=== PATIENT | male | born 1970 | race Caucasian/White ===

== ENCOUNTER 2021-09-26 15:50 | Emergency (ER) | payer OTHER ==
[2021-09-26 16:13] VITALS: RESP 18; BMI 22.8
[2021-09-26] MEDS ORDERED: SODIUM CHLORIDE 0.9% 500 ML INFUS.BAG IV ONE (17:09)
[2021-09-26] MEDS ORDERED: FAMOTIDINE 20 MG/50 ML IVPB 20 MG/50 ML MG IVPB ONE ×2 (17:10→17:21)
[2021-09-26] MEDS ORDERED: ONDANSETRON 4 MG/2 ML VIAL IVPUSH ONE ×2 (17:10→20:37)
[2021-09-26] MEDS ORDERED: morphine CARPU-JECT 4 MG/1 ML DISP.SYRIN IVPUSH ONE (17:14)
[2021-09-26] MEDS ORDERED: morphine SULFATE 4 MG/ML VIAL ONE (17:21)
[2021-09-26] MEDS ORDERED: ONDANSETRON 4 MG/2 ML VIAL ONE ×2 (17:21→21:05)
[2021-09-26] MEDS ORDERED: HYDROmorphone HCL CARPU-JECT 1 MG/1 ML DISP.SYRIN IVPUSH ONE ×2 (17:55→20:37)
[2021-09-26 18:04] LABS: HEMATOCRIT 37.5 % (35.4-49); HEMOGLOBIN 12.8 G/dL (11.7-16.9); MCH 27.6 pg (25.7-33.7); MCHC 34.2 g/dl (32.0-35.9); MEAN CELL VOLUME 80.8 fl (80-96); PLATELET COUNT 328.5 10^3/uL (134-434); RBC 4.64 10^6/uL (4.00-5.60); RDW 17.2 % (11.9-15.9); WHITE BLOOD COUNT 7.8 10^3/uL (4.0-10.8)
[2021-09-26] MEDS ORDERED: HYDROmorphone HCL/PF 1 MG/ML VIAL ONE ×2 (18:18→21:05)
[2021-09-26 18:19] LABS: ALBUMIN 3.9 g/dl (3.4-5.0); BILIRUBIN,TOTAL 1.4 mg/dl (0.2-1); TOT PROT 6.4 g/dl (6.4-8.2)
[2021-09-26 18:41] LABS: ANISOCYTOSIS 1+; OVALOCYTE 2+; TEAR DROP CELLS 1+
[2021-09-26 18:42] LABS: PLATELET ESTIMATE ADEQUATE
[2021-09-26 18:45] VITALS: BP 166/111; PULSE 86; TEMP 98.1
[2021-09-26] MEDS ORDERED: AMOX TR/POT CLAV 875MG/125MG TABLETS (FP) PO ONE (22:00)
[2021-09-26] MEDS ORDERED: AMOX TR/POT CLAV 875MG/125MG TABLETS (FP) ONE (22:08)
== END 2021-09-26 22:14 | disposition home or self-care (01) ==
LOC: FER 15:50
DX: K52.9 Noninfective gastroenteritis and colitis, unspecified (principal)
CPT/HCPCS: 36415; 74177-TC; 80053; 81003; 83690; 85025; 87086; 99285-25; Q9967

== ENCOUNTER 2021-09-27 08:33 | Inpatient (IN) | payer OTHER ==
[2021-09-27] MEDS ORDERED: SODIUM CHLORIDE 1,000 ML IV STA ×2 (09:42→17:38)
[2021-09-27] MEDS ORDERED: ACETAMINOPHEN 1000 MG/100 ML BAG IVPB ONE ×2 (09:45→17:38)
[2021-09-27] MEDS ORDERED: ACETAMINOPHEN INJECTION 100 ML IVPB ONE ×2 (10:38→17:59)
[2021-09-27] MEDS ORDERED: HYDROmorphone HCL CARPU-JECT 2 MG/1 ML DISP.SYRIN IVPB ONE (11:16)
[2021-09-27] MEDS ORDERED: PIPERACILLIN/TAZOB 4.5 GM 4.5 GM in DEXTROSE 5%-WATER 100 ML IVPB ONE (11:26)
[2021-09-27 11:54] LABS: BLOOD UREA NITROGEN 12.2 mg/dL (7-18); CALCIUM 9.3 mg/dL (8.5-10.1)
[2021-09-27 11:55] LABS: ALBUMIN 3.7 g/dl (3.4-5.0)
[2021-09-27 11:57] LABS: CREATININE 0.9 mg/dL (0.55-1.3)
[2021-09-27 11:59] LABS: BILIRUBIN,TOTAL 1.2 mg/dL (0.2-1); TOT PROT 6.3 g/dl (6.4-8.2)
[2021-09-27] MEDS ORDERED: HYDROmorphone HCl 2 MG/ML VIAL ONE ×2 (12:49→21:01)
[2021-09-27 12:51] LABS: BASO % 1.2 % (0-2.0); EOS % 2.7 % (0-4.5); HEMATOCRIT 35.4 % (35.4-49); HEMOGLOBIN 11.7 GM/dL (11.7-16.9); LYMPH % 23.1 % (8-40); MCH 26.5 pg (25.7-33.7); MCHC 33.2 g/dl (32.0-35.9); MEAN PLT VOLUME 9.2 fl (7.5-11.1); MONO % 10.1 % (3.8-10.2); NEUT % 62.9 % (42.8-82.8); PLATELET COUNT 291 10^3/uL (134-434); RBC 4.43 M/mm3 (4.00-5.60); RDW 16.2 % (11.9-15.9); WHITE BLOOD COUNT 5.6 K/mm3 (4.0-10.0)
[2021-09-27 13:01] LABS: INR 1.03 (0.83-1.09); PROTHROMBIN TIME (PATIENT) 11.8 SEC (9.7-13.0)
[2021-09-27 13:04] LABS: ACTIVATED PTT 28.4 SECONDS (25.2-36.5)
[2021-09-27] MEDS ORDERED: PIPERACILLIN/TAZOB 4.5 GM 4.5 GM/100 ML BAG IVPB ONE (13:23)
[2021-09-27] MEDS ORDERED: ONDANSETRON 4 MG/2 ML VIAL IVPUSH PRN (18:58)
[2021-09-27] MEDS ORDERED: morphine SULFATE 4 MG/ML VIAL IVPUSH PRN (18:59)
[2021-09-27] MEDS ORDERED: ACETAMINOPHEN 1000 MG/100 ML BAG IVPB PRN (18:59)
[2021-09-27] MEDS ORDERED: ONDANSETRON 4 MG/2 ML VIAL ONE (19:43)
[2021-09-27] MEDS: DICYCLOMINE HCL 10 MG CAPSULE PO SCH (19:54)
[2021-09-27] MEDS ORDERED: ACETAMINOPHEN 325 MG TABLET (FP) PO PRN (20:19)
[2021-09-27] MEDS ORDERED: HYDROmorphone HCl 2 MG/ML VIAL IVPUSH PRN (20:39)
[2021-09-27] MEDS ORDERED: clonazePAM 2 MG TABLET ONE (21:49)
[2021-09-27] MEDS ORDERED: GABAPENTIN 300 MG CAPSULE ONE (21:49)
[2021-09-27] MEDS ORDERED: CEFTRIAXONE 1 GM/50 ML BAG ONE (21:50)
[2021-09-27] MEDS ORDERED: clonazePAM 2 MG TABLET PO SCH (22:00)
[2021-09-27] MEDS: CEFTRIAXONE 1 GM in DEXTROSE 5%-WATER - 50 ML IVPB SCH (22:01)
[2021-09-27] MEDS: GABAPENTIN 300 MG CAPSULE PO SCH (22:01)
[2021-09-27] MEDS: LACTATED RINGERS SOLUTION 1,000 ML IV SCH (22:40)
[2021-09-27] MEDS: PATIENT'S OWN MEDICATION (NON-FORMULARY) (Dextroamphetamine/Amphetamine [Adderall 10 Mg Ta PO SCH (22:40)
[2021-09-28] MEDS: DICYCLOMINE HCL 10 MG CAPSULE PO SCH ×4 (00:40→17:25)
[2021-09-28] MEDS: LACTATED RINGERS SOLUTION 1,000 ML IV SCH ×2 (01:00→19:07)
[2021-09-28] MEDS: PATIENT'S OWN MEDICATION (NON-FORMULARY) (Dextroamphetamine/Amphetamine [Adderall 10 Mg Ta PO SCH (06:03)
[2021-09-28] MEDS: clonazePAM 0.5 MG TABLET PO SCH ×3 (06:04→21:33)
[2021-09-28] MEDS: GABAPENTIN 300 MG CAPSULE PO SCH ×3 (06:04→21:33)
[2021-09-28] MEDS: HYDROmorphone HCl 2 MG/ML VIAL IVPB PRN ×2 (08:46→12:50)
[2021-09-28 09:08] LABS: PH,URINE 6.5 (5.0-8.0); URINE APPEARANCE CLEAR; URINE BILIRUBIN NEGATIVE (NEGATIVE); URINE COLOR YELLOW; URINE GLUCOSE (UA) NEGATIVE (NEGATIVE); URINE KETONE 2+ (NEGATIVE); URINE LEUK ESTERASE NEGATIVE (NEGATIVE); URINE NITRITE NEGATIVE (NEGATIVE); URINE PROTEIN TRACE (NEGATIVE)
[2021-09-28] MEDS: CEFTRIAXONE 1 GM in DEXTROSE 5%-WATER - 50 ML IVPB SCH (09:08)
[2021-09-28 09:11] LABS: BASO % 0.8 % (0-2.0); EOS % 3.6 % (0-4.5); HEMATOCRIT 34.3 % (35.4-49); HEMOGLOBIN 11.6 GM/dL (11.7-16.9); LYMPH % 26.5 % (8-40); MCH 26.5 pg (25.7-33.7); MCHC 33.7 g/dl (32.0-35.9); MEAN CELL VOLUME 78.6 fl (80-96); MEAN PLT VOLUME 8.6 fl (7.5-11.1); MONO % 10.5 % (3.8-10.2); NEUT % 58.6 % (42.8-82.8); PLATELET COUNT 276 10^3/uL (134-434); RBC 4.36 M/mm3 (4.00-5.60); WHITE BLOOD COUNT 5.2 K/mm3 (4.0-10.0)
[2021-09-28] MEDS: amLODIPine BESYLATE 5 MG TABLET (FP) PO SCH (09:11)
[2021-09-28] MEDS: ENOXAPARIN NA (PORCINE) 40 MG/0.4 ML DISP.SYRIN SQ SCH (09:14)
[2021-09-28] MEDS: TRIAMTERENE AND HCTZ - 37.5 MG/25 MG CAPSULE PO SCH (09:15)
[2021-09-28 09:30] LABS: CALCIUM 8.7 mg/dL (8.5-10.1); MAGNESIUM 1.8 mg/dL (1.8-2.4)
[2021-09-28 09:31] LABS: ALBUMIN 3.1 g/dl (3.4-5.0); BLOOD UREA NITROGEN 11.9 mg/dL (7-18)
[2021-09-28 09:33] LABS: BILIRUBIN,DIRECT 0.3 mg/dL (0.0-0.2); CREATININE 0.8 mg/dL (0.55-1.3)
[2021-09-28 09:34] LABS: PHOSPHOROUS 2.6 mg/dL (2.5-4.9); TOT PROT 5.4 g/dl (6.4-8.2)
[2021-09-28 09:35] LABS: BILIRUBIN,TOTAL 1.1 mg/dL (0.2-1)
[2021-09-28] MEDS ORDERED: PATIENT'S OWN MEDICATION (NON-FORMULARY) (Cariprazine Hcl [Vraylar] 1.5 MG Capsule) PO SCH (10:00)
[2021-09-29] MEDS: DICYCLOMINE HCL 10 MG CAPSULE PO SCH ×4 (00:13→17:08)
[2021-09-29] MEDS: HYDROmorphone HCl 2 MG/ML VIAL IVPB PRN ×3 (00:31→09:24)
[2021-09-29] MEDS: GABAPENTIN 300 MG CAPSULE PO SCH ×3 (06:18→22:45)
[2021-09-29] MEDS: clonazePAM 0.5 MG TABLET PO SCH ×3 (06:18→22:45)
[2021-09-29] MEDS: ENOXAPARIN NA (PORCINE) 40 MG/0.4 ML DISP.SYRIN SQ SCH (09:17)
[2021-09-29] MEDS: CEFTRIAXONE 1 GM in DEXTROSE 5%-WATER - 50 ML IVPB SCH (09:23)
[2021-09-29] MEDS: amLODIPine BESYLATE 5 MG TABLET (FP) PO SCH (09:23)
[2021-09-29] MEDS: TRIAMTERENE AND HCTZ - 37.5 MG/25 MG CAPSULE PO SCH ×2 (09:29→09:37)
[2021-09-29 09:39] LABS: BASO % 0.9 % (0-2.0); EOS % 3.7 % (0-4.5); HEMATOCRIT 35.8 % (35.4-49); LYMPH % 31.3 % (8-40); MCH 26.8 pg (25.7-33.7); MCHC 33.5 g/dl (32.0-35.9); MEAN PLT VOLUME 8.7 fl (7.5-11.1); MONO % 11.1 % (3.8-10.2); PLATELET COUNT 288 10^3/uL (134-434); RBC 4.47 M/mm3 (4.00-5.60); RDW 15.9 % (11.9-15.9); WHITE BLOOD COUNT 4.9 K/mm3 (4.0-10.0)
[2021-09-29 10:04] LABS: CALCIUM 8.8 mg/dL (8.5-10.1)
[2021-09-29 10:05] LABS: ALBUMIN 3.1 g/dl (3.4-5.0); BLOOD UREA NITROGEN 12.9 mg/dL (7-18); MAGNESIUM 1.7 mg/dL (1.8-2.4)
[2021-09-29 10:08] LABS: CREATININE 0.8 mg/dL (0.55-1.3)
[2021-09-29 10:09] LABS: TOT PROT 5.3 g/dl (6.4-8.2)
[2021-09-29] MEDS ORDERED: MAGNESIUM 2GM/50ML STERILE WATER IVPB IVPB ONE (12:39)
[2021-09-29] MEDS ORDERED: HYDROmorphone HCl 2 MG/ML VIAL IVPB PRN (12:41)
[2021-09-29 15:22] VITALS: BMI 22.0
[2021-09-29] MEDS: PATIENT'S OWN MEDICATION (NON-FORMULARY) (Dextroamphetamine/Amphetamine [Adderall 10 Mg Ta PO SCH ×2 (18:32→22:46)
[2021-09-29] MEDS: LACTATED RINGERS SOLUTION 1,000 ML IV SCH (19:23)
[2021-09-29] MEDS ORDERED: HYDROmorphone HCl 2 MG/ML VIAL IVPB ONE (20:21)
[2021-09-30] MEDS: DICYCLOMINE HCL 10 MG CAPSULE PO SCH ×2 (01:05→06:28)
[2021-09-30 01:31] VITALS: RESP 18
[2021-09-30] MEDS ORDERED: HYDROmorphone HCl 2 MG/ML VIAL IVPB ONE (01:33)
[2021-09-30] MEDS ORDERED: DEXTROSE 5%-NORMAL SALINE 1,000 ML IV SCH (01:45)
[2021-09-30 03:51] VITALS: BP 136/79; PULSE 69; TEMP 98.7
[2021-09-30] MEDS: clonazePAM 0.5 MG TABLET PO SCH (06:27)
[2021-09-30] MEDS: GABAPENTIN 300 MG CAPSULE PO SCH (06:27)
[2021-09-30] MEDS ORDERED: PATIENT'S OWN MEDICATION (NON-FORMULARY) (Dextroamphetamine/Amphetamine [Adderall 10 Mg Ta PO SCH (08:00)
[2021-09-30] MEDS ORDERED: ACETAMINOPHEN 1000 MG/100 ML BAG IVPB PRN (09:54)
[2021-09-30] MEDS: TRIAMTERENE AND HCTZ - 37.5 MG/25 MG CAPSULE PO SCH (10:16)
[2021-09-30] MEDS: amLODIPine BESYLATE 5 MG TABLET (FP) PO SCH (10:18)
[2021-09-30] MEDS: ENOXAPARIN NA (PORCINE) 40 MG/0.4 ML DISP.SYRIN SQ SCH (10:18)
[2021-09-30] MEDS: CEFTRIAXONE 1 GM in DEXTROSE 5%-WATER - 50 ML IVPB SCH (10:19)
== END 2021-09-30 11:44 | disposition left against medical advice (07) | DRG 387 ==
LOC: JER 08:33 → JERBED 20:31 → J6S 23:45
PROVIDERS: ADMIT Internal Medicine; ATTEND Nurse Practitioner Acute Care
DX: K51.819 Other ulcerative colitis with unspecified complications (principal); I10 Essential (primary) hypertension; F90.9 Attention-deficit hyperactivity disorder, unspecified type; M79.7 Fibromyalgia; R19.7 Diarrhea, unspecified
CPT/HCPCS: 36415; 71046-TC-FY; 80048; 80053; 80076; 81003; 82962; 83690; 83735; 84100; 85025; 85610; 85730; 93005; 93010; 99285-25; C9803-CS; U0003; U0005

== ENCOUNTER → 2021-09-30 | Emergency (ER) | payer OTHER ==
[2021-09-30 17:33] VITALS: BP 138/89; PULSE 70; RESP 20; TEMP 98; BMI 22.8
== END | disposition left against medical advice (07) ==
LOC: FER 17:24
DX: R10.9 Unspecified abdominal pain (principal)
CPT/HCPCS: 99281-25

== ENCOUNTER 2021-10-08 20:14 | Emergency (ER) | payer OTHER ==
[2021-10-08 20:37] VITALS: BP 124/90; PULSE 75; RESP 17; TEMP 98.4; BMI 22.8
[2021-10-08] MEDS ORDERED: HYDROmorphone HCL CARPU-JECT 1 MG/1 ML DISP.SYRIN IM ONE (20:44)
== END 2021-10-08 20:52 | disposition home or self-care (01) ==
LOC: FER 20:14
PROC: 3E023NZ Introduction of Analgesics, Hypnotics, Sedatives into Muscle, Percutaneous Approach (ICD-10-PCS; principal; 2021-10-08)
DX: R10.9 Unspecified abdominal pain (principal)
CPT/HCPCS: 99284-25